=== PATIENT | male | born 1960 | race Caucasian/White ===

== ENCOUNTER 2025-04-05 16:07 | Emergency (ER) | payer MEDICARE ==
[2025-04-05] MEDS ORDERED: Lidocaine 1% w/Epinephrine 1:100K 20 ML VIAL ONE (16:35)
[2025-04-05] MEDS ORDERED: Boostrix 0.5 ML (Tdap) VIAL (>/=7 yrs of age) ONE (16:35)
== END 2025-04-05 18:33 | disposition home or self-care (01) ==
LOC: ERS 16:07
DX: S01.81XA Laceration without foreign body of other part of head, initial encounter (principal); I10 Essential (primary) hypertension; Z23 Encounter for immunization; Z79.899 Other long term (current) drug therapy; W01.10XA Fall on same level from slipping, tripping and stumbling with subsequent striking against unspecified object, initial encounter
CPT/HCPCS: 12042; 70486; 90471; 90715

== ENCOUNTER 2025-04-15 10:58 | Outpatient (CLI) | payer MEDICARE | END 2025-04-15 10:59 | disposition home or self-care (01) | LOC: LABBT 10:58 | PROVIDERS: ATTEND Orthopaedic Surgery | DX: Z01.818 Encounter for other preprocedural examination (principal); M48.02 Spinal stenosis, cervical region; M47.12 Other spondylosis with myelopathy, cervical region; S14.129A Central cord syndrome at unspecified level of cervical spinal cord, initial encounter | CPT/HCPCS: 71046; 80048; 83036; 85025; 85610; 85730; 86850; 86900; 86901; 93005; 93010 ==

== ENCOUNTER 2025-04-15 12:34 | Outpatient (CLI) | payer MEDICARE | END 2025-04-15 12:35 | disposition home or self-care (01) | LOC: CT 12:34 | PROVIDERS: ATTEND Orthopaedic Surgery | DX: M47.12 Other spondylosis with myelopathy, cervical region (principal); M48.02 Spinal stenosis, cervical region; M47.813 Spondylosis without myelopathy or radiculopathy, cervicothoracic region; Z01.818 Encounter for other preprocedural examination; S14.129A Central cord syndrome at unspecified level of cervical spinal cord, initial encounter | CPT/HCPCS: 72125 ==